=== PATIENT | male | born 1940 | race Caucasian/White ===

== ENCOUNTER 2021-11-22 12:07 | Inpatient (IN) | payer OTHER ==
[~2021-11-22] VITALS: Ht 175.3 cm; Wt 107.0 kg
[~2021-11-22 12:07] MED LIST: AMBIEN10 MG PO; ATROVASTATIN PO; BREO ELLIPTA 21 EACH IH; CIPRO750 MG PO; CLONAZEPAM1 MG PO; COZAAR50 MG PO; Colace 100MG PO; DEXILANT60 MG PO; GLUMETZA500 MG PO; NEURONTIN PO; PERCOCET 5/3251 TAB PO; PROTONIX40 M1 PO; SINGULAIR10 MG PO; SPRIVIA PO
[2021-11-27] MEDS ORDERED: ATORVASTATIN CA20 MG (09:33)
[2021-11-27] MEDS ORDERED: AZELASTINE137 MCG/0. (09:34)
[2021-11-27] MEDS ORDERED: COLACE100 MG (09:35)
[2021-11-27] MEDS ORDERED: GABAPENTIN800 M1 (09:35)
[2021-11-27] MEDS ORDERED: COLACE100 MG PO (09:44)
[2021-11-27] MEDS ORDERED: PERCOCET 5-3251 EACH PO (09:45)
[2021-11-27] MEDS ORDERED: MEDROLPACK PO (09:46)
[2021-11-27] MEDS ORDERED: AMOX-CLAV 875-1 EACH PO (09:46)
[2021-11-27] MEDS ORDERED: NEURONTIN800 MG PO (09:46)
== END 2021-11-29 17:05 | disposition home or self-care (01) | DRG 455 ==
LOC: O/R 11-27 05:17 → SURH 11-27 11:30 → PED 11-27 13:48 → O/R 11-27 14:02 → PED 11-27 15:42
PROVIDERS: ADMIT Orthopaedic Surgery Orthopaedic Surgery of the Spine; ATTEND Orthopaedic Surgery Orthopaedic Surgery of the Spine
PROC: 0SG00A0 Fusion of Lumbar Vertebral Joint with Interbody Fusion Device, Anterior Approach, Anterior Column, Open Approach (ICD-10-PCS; 2021-11-27)
PROC: 0SG0071 Fusion of Lumbar Vertebral Joint with Autologous Tissue Substitute, Posterior Approach, Posterior Column, Open Approach (ICD-10-PCS; 2021-11-27)
PROC: 0QB20ZZ Excision of Right Pelvic Bone, Open Approach (ICD-10-PCS; 2021-11-27)
PROC: 07DR0ZZ Extraction of Iliac Bone Marrow, Open Approach (ICD-10-PCS; 2021-11-27)
PROC: 0SB20ZZ Excision of Lumbar Vertebral Disc, Open Approach (ICD-10-PCS; principal; 2021-11-27 11:30)
DX: M48.062 Spinal stenosis, lumbar region with neurogenic claudication (principal); M41.56 Other secondary scoliosis, lumbar region; M51.36 Other intervertebral disc degeneration, lumbar region; I10 Essential (primary) hypertension; E11.9 Type 2 diabetes mellitus without complications